=== PATIENT | female | born 1960 | race Two or more races ===

== ENCOUNTER 2019-11-10 19:48 | Emergency (ER) | payer BC ==
[2019-11-10 21:51] LABS: ABS Eosinophils 0.2 10^3/ul (0-0.6); ABS Lymphocytes 1.5 10^3/ul (1.0-4.8); ABS Monocytes 0.4 10^3/ul (0-0.8); ABS Neutrophils 2.2 10^3/ul (1.5-7.7); Eosinophil % 4.4 %; Hematocrit 46 % (35-47); Hemoglobin 15.5 g/dL (12.0-16.0); Lymphocyte % 34.5 %; Mean Corpuscular HGB Conc 34 g/dL (31-36); Mean Corpuscular Hemoglobin 32 pg (27-31); Mean Corpuscular Volume 95 fL (80-97); Mean Platelet Volume 6.7 fL (7.4-10.4); Nucleated Red Blood Cells % 0.1; Platelet Count 259 10^3/uL (150-450); Red Cell Distribution Width 14 % (10-15); White Blood Count 4.3 10^3/uL (3.5-10.8)
[2019-11-10 21:54] LABS: INR 0.96 (0.82-1.09)
[2019-11-10 22:07] LABS: Albumin 4.3 g/dL (3.2-5.2); Albumin/Globulin Ratio 1.5 (1-3); BUN/Creatinine Ratio 5.9 (8-20); Calcium 9.1 mg/dL (8.6-10.3); EGFR African American 149.9 (>60); EGFR Non-African American 123.9 (>60); Globulin 2.8 g/dL (2-4); Potassium 4.4 mmol/L (3.5-5.0); Total Bilirubin 0.3 mg/dL (0.2-1.0); Total Protein 7.1 g/dL (6.4-8.9)
--- NOTE | 2019-11-10 22:23 | ED ---
HPI Chest Pain - HPI Summary HPI Summary: 59 year old F presenting to [facility] with a chief complaint of palpitations. Patient states that last 11/02/2019, she was working an overnight shift at [employer] when she suddenly dropped to her knees and began to experience palpitations for 10-15 minutes. On 11/08/2019, patient experienced the same symptoms again. Yesterday, on 11/09/2019, at 3am patient experienced the same symptoms while driving. Palpitations feel the same and is located in the same location, and lasts for 10-15 minutes during each episode. Patient described her chest discomfort as if her heart was going 100 miles per hour. She denies any sharp pain while experiencing her symptoms and denies syncope. Patient reports feeling lightheaded and states that she had to sit down when experiencing her symptoms. She also notes one episode of a BLACK. Patient currently does not feel her symptoms. She came in today because she could not get into contact with a doctor. Patient did not experience these symptoms prior to one week ago. Patient denies having any PMHx of COPD/ emphysema other than having bronchitis and a sinus infection a couple of weeks ago. SHx includes smoking half a pack a day and occasional drinking. Home Medications Medication Instructions Recorded Confirmed Type NK [No Home Medications Reported] 10/16/12 10/16/12 History - History of Current Complaint Chief Complaint: EDChestWallPain Time Seen by Provider: 11/10/19 21:38 Hx Obtained From: Patient Onset/Duration: Started Days Ago Timing: Intermittent Initial Severity: Mild Current Severity: None Pain Intensity: 2 Pain Scale Used: 0-10 Numeric Character: Fast Associated Signs and Symptoms: Positive: Headaches, Lightheadedness, Palpitations. Negative: Chest Pain, Syncope - Allergy/Home Medications Allergies/Adverse Reactions: Allergies Allergy/AdvReac Type Severity Reaction Status Date / Time No Known Allergies Allergy Verified 10/20/12 11:09 Home Medications: Home Medications NK [No Home Medications Reported] 10/16/12 [History Confirmed 10/16/12] PMH/Surg Hx/FS Hx/Imm Hx Endocrine/Hematology History: Denies: Hx Anticoagulant Therapy, Hx Diabetes, Hx Thyroid Disease Cardiovascular History: Denies: Hx Hypertension, Hx Pacemaker/ICD Respiratory History: Denies: Hx Asthma, Hx Chronic Obstructive Pulmonary Disease (COPD) History: Denies: Hx Renal Disease Neurological History: Denies: Hx Dementia, Hx Seizures Psychiatric History: Reports: Hx Substance Abuse Denies: Hx Eating Disorder, Hx of Violent Episodes Against Others Infectious Disease History: No Infectious Disease History: Denies: Hx Hepatitis, Hx Human Immunodeficiency Virus (HIV), Traveled Outside the [place] in Last 30 Days - Family History Known Family History: Negative: Cardiac Disease, Hypertension, Diabetes - Social History Alcohol Use: Occasionally Substance Use Type: Reports: None Smoking Status (MU): Light Every Day Tobacco Smoker - Half pack a day. Type: Cigarettes Review of Systems Positive: Palpitations. Negative: Chest Pain Neurological/Mental Status: Other - positive - light-headedness Positive: Headache. Negative: Syncope All Other Systems Reviewed And Are Negative: Yes Physical Exam - Summary Physical Exam Summary: Appearance: Well-appearing, Well-nourished, lying in bed comfortably Skin: Warm, dry, no obvious rash Eyes: sclera anicteric, no conjunctival pallor HENT: mucous membranes moist, pharynx appears normal Neck: Supple, nontender Respiratory: Clear to auscultation, no signs of respiratory distress Cardiovascular: Normal S1, S2. No murmurs. Normal distal pulses in tibial and radial bilaterally. Abdomen: Soft, nontender, normal active bowel sounds present Musculoskeletal: Normal, Strength/ROM Intact Neurological: A&Ox3, awake and alert, mentation is normal, speech is fluent and appropriate Psychiatric: affect is normal, does not appear anxious or depressed Triage Information Reviewed: Yes Vital Signs On Initial Exam: Initial Vitals Temp Pulse Resp BP Pulse Ox 99.4 F 101 18 135/89 97 11/10/19 19:57 11/10/19 19:57 11/10/19 19:57 11/10/19 19:57 11/10/19 19:57 Vital Signs Reviewed: Yes Procedures - Sedation Patient Received Moderate/Deep Sedation with Procedure: No Diagnostics - Vital Signs Vital Signs Temp Pulse Resp BP Pulse Ox 11/10/19 19:57 99.4 F 101 18 135/89 97 - Laboratory Lab Results: Lab Results 11/10/19 11/10/19 11/10/19 Range/Units 21:41 21:41 21:41 WBC 4.3 (3.5-10.8) 10^3/uL RBC 4.80 (3.70-4.87) 10^6 /uL Hgb 15.5 (12.0-16.0) g/dL Hct 46 (35-47) % MCV 95 (80-97) fL MCH 32 H (27-31) pg MCHC 34 (31-36) g/dL RDW 14 (10-15) % Plt Count 259 (150-450) 10^3/uL MPV 6.7 L (7.4-10.4) fL Neut % (Auto) 51.4 % Lymph % (Auto) 34.5 % [place] % (Auto) 8.9 % Eos % (Auto) 4.4 % Baso % (Auto) 0.8 % Absolute Neuts (auto) 2.2 (1.5-7.7) 10^3/ul Absolute Lymphs (auto) 1.5 (1.0-4.8) 10^3/ul Absolute Monos (auto) 0.4 (0-0.8) 10^3/ul Absolute Eos (auto) 0.2 (0-0.6) 10^3/ul Absolute Basos (auto) 0.0 (0-0.2) 10^3/ul Absolute Nucleated RBC 0.0 10^3/ul Nucleated RBC % 0.1 INR (Anticoag Therapy) 0.96 (0.82-1.09) Sodium 132 L (135-145) mmol/L Potassium 4.4 (3.5-5.0) mmol/L Chloride 101 (101-111) mmol/L Carbon Dioxide 22 (22-32) mmol/L Anion Gap 9 (2-11) mmol/L BUN 3 L (6-24) mg/dL Creatinine 0.51 (0.51-0.95) mg/dL Est GFR ( Amer) 149.9 (>60) Est GFR (Non-Af Amer) 123.9 (>60) BUN/Creatinine Ratio 5.9 L (8-20) Glucose 79 (70-100) mg/dL Calcium 9.1 (8.6-10.3) mg/dL Total Bilirubin 0.30 (0.2-1.0) mg/dL AST 33 (13-39) U/L ALT 26 (7-52) U/L Alkaline Phosphatase 61 (34-104) U/L Troponin I 0.00 (<0.03) ng/mL Total Protein 7.1 (6.4-8.9) g/dL Albumin 4.3 (3.2-5.2) g/dL Globulin 2.8 (2-4) g/dL Albumin/Globulin Ratio 1.5 (1-3) Result Diagrams: 11/10/19 21:41 11/10/19 21:41 Lab Statement: Any lab studies that have been ordered have been reviewed, and results considered in the medical decision making process. Chest Pain Course/Dx - Course Course Of Treatment: 59 year old F presents to [facility] with a chief complaint of intermittent palpitations since last week. Patient states that her heart suddenly feels as if it is going 100 miles per hour, and her symptoms last 10- 15 min. Palpitations feels the same and is located in the same area every time she experiences her symptoms. Physical Exam was normal. Patients bloodwork showed 32 MCH, 6.7 MPV, 132 sodium, 3 BUN, and 5.9 BUN/Creatinine ratio. Patient was discharged to home with a recommendation to follow up with a icu clerk. - Diagnoses Provider Diagnoses: Heart palpitations - Critical Care Time Critical Care Statement: Critical care time is provided exclusive of any time spent performing procedures. Discharge ED - Sign-Out/Discharge Documenting (check all that apply): Patient Departure - Discharge Plan Condition: Good Disposition: HOME Patient Education Materials: Heart Palpitations (ED) Forms: *Work Release Referrals: Randi Snyder MD [Medical Doctor] - Additional Instructions: I suspect you are having transient bouts of a disturbance in your heart rhythm, but your history does not suggest what we would call a malignant or dangerous arrhythmia. Nonetheless it would be useful to make a more precise diagnosis, which the icu clerk can do with an ambulatory heart rhythm monitoring test. So call the icu clerk office tomorrow and see if you can get in soon. Signs of a more significant rhythm problem would be persistence beyond an hour, or with associated symptoms like chest pain, shortness of breath, or passing out. If those were to happen I would want you back here forthwith. In the meantime I think it is ok for you to go to work as you have not had fever or respiratory symptoms suggestive of COVID. - Billing Disposition and Condition Condition: GOOD Disposition: Home - Attestation Statements Document Initiated by Scribe: Yes Documenting Scribe: Ellie Mar Provider For Whom Scribe is Documenting (Include Credential): Ronald Tidwell MD Scribe Attestation: IEllie, scribed for Ronald Tidwell MD on 11/11/19 at 2057. Scribe Documentation Reviewed: Yes Provider Attestation: The documentation as recorded by the paulyibe, Ellie Mar accurately reflects the service I personally performed and the decisions made by me, Ronald Tidwell MD Status of Scribe Document: Viewed
[2019-11-10 22:43] VITALS: BP 116/80
== END 2019-11-10 22:32 | disposition home or self-care (01) ==
LOC: ED 19:48
DX: R00.2 Palpitations (principal); F17.210 Nicotine dependence, cigarettes, uncomplicated
CPT/HCPCS: 36415; 80053; 84484; 85025; 85610; 99283

== ENCOUNTER 2023-06-08 23:34 | Observation (INO) ==
[2023-06-09 00:11] LABS: ABS Eosinophils 0.2 10^3/uL (0.0-0.5); ABS Lymphocytes 1.5 10^3/uL (1.0-4.8); ABS Monocytes 0.2 10^3/uL (0.0-0.9); ABS Neutrophils 2.1 10^3/uL (1.5-7.6); Hematocrit 46.5 % (35-45); Hemoglobin 16.2 g/dL (11.5-14.3); Lymphocyte % 37.3 %; Mean Corpuscular Hemoglobin 32.9 pg (27-33); Mean Corpuscular Hgb Conc 34.8 g/dL (31-36); Mean Corpuscular Volume 94.4 fL (80-97); Mean Platelet Volume 6.6 fL (7.5-11.2); Nucleated Red Blood Cells % 0.1 %/100WBC (0.0-0.8); Platelet Count 263 10^3/uL (150-450); Red Blood Count 4.92 10^6/uL (3.63-4.92); Red Cell Distribution Width 14.3 % (12-17)
[2023-06-09 00:22] LABS: INR 0.89 (0.83-1.13)
[2023-06-09 00:35] LABS: Albumin 4.5 g/dL (3.2-5.2); Albumin/Globulin Ratio 1.7 (1-3); Creatinine, Serum 0.69 mg/dL (0.51-0.95); Globulin 2.7 g/dL (2-4); Total Bilirubin 0.3 mg/dL (0.2-1.0); Total Protein 7.2 g/dL (6.4-8.9); eGFR CKD-EPI 98.7 (>60)
[2023-06-09 02:06] LABS: High Sensitivity Troponin 1 Hr 6 pg/mL (<15)
[2023-06-09] MEDS ORDERED: Iohexol 350 (CONTRAST) 500 ML MDV IV ONE (02:57)
[2023-06-09] MEDS ORDERED: Nicotine PATCH 21 MG/24 HR PATCH TRANSDERM ONE (03:46)
[2023-06-09] MEDS ORDERED: Nicotine GUM 4MG FRUIT FLAVOR PO PRN (04:34)
[2023-06-09] MEDS ORDERED: Enoxaparin 40 MG/0.4 ML SYR SUBCUT SCH (05:00)
[2023-06-09 05:01] LABS: HDL Cholesterol 79.5 mg/dL
[2023-06-09] MEDS ORDERED: Thiamine 100 MG/ML 2 ml VIAL (200 mg) IM ONE (05:07)
[2023-06-09] MEDS: Aspirin EC 81 mg TAB.EC (enteric coated) PO SCH ×2 (05:25→07:45)
[2023-06-09 06:00] LABS: Folate 13.74 ng/mL (5.90-24.80)
[2023-06-09] MEDS ORDERED: LORazepam 2 mg VIAL 1 ml IV PUSH SCH (06:00)
[2023-06-09] MEDS ORDERED: Multivitamins/Minerals TAB PO SCH (06:00)
[2023-06-09 15:29] VITALS: BP 137/67
[2023-06-11 15:53] LABS: Anaplasma phagocytophilum Negative (Negative); B. miyamotoi PCR, B Negative (Negative); Babesia divergens/MO-1 Negative (Negative); Babesia ducani Negative (Negative); Ehrlichia chaffeensis Negative (Negative); Ehrlichia ewingii/canis Negative (Negative); Ehrlichia muris eauclairensis Negative (Negative)
== END 2023-06-09 15:28 | disposition home or self-care (01) ==
LOC: ED 23:34 → EDHOLD 23:34 → SUATTDRO 06-09 04:14 → EDHOLD 06-09 15:27
PROVIDERS: ADMIT Internal Medicine; ATTEND Hospitalist

== ENCOUNTER 2024-05-03 07:12 | Observation (INO) ==
[2024-05-03 08:12] LABS: ABS Eosinophils 0.4 10^3/uL (0.0-0.5); ABS Lymphocytes 1.7 10^3/uL (1.0-4.8); ABS Monocytes 0.5 10^3/uL (0.0-0.9); ABS Neutrophils 3.8 10^3/uL (1.5-7.6); Eosinophil % 6.1 %; Hematocrit 43.1 % (35-45); Lymphocyte % 26.6 %; Mean Corpuscular Hemoglobin 32.9 pg (27-33); Mean Corpuscular Hgb Conc 34.9 g/dL (31-36); Mean Corpuscular Volume 94.3 fL (80-97); Mean Platelet Volume 6.5 fL (7.5-11.2); Platelet Count 283 10^3/uL (150-450); Red Blood Count 4.57 10^6/uL (3.63-4.92); White Blood Count 6.5 10^3/uL (3.8-11.8)
[2024-05-03 08:30] LABS: Albumin 4.6 g/dL (3.2-5.2); Albumin/Globulin Ratio 1.8 (1-3); Calcium 9.4 mg/dL (8.6-10.3); Creatinine, Serum 0.58 mg/dL (0.51-0.95); Globulin 2.6 g/dL (2-4); Potassium 4.5 mmol/L (3.5-5.0); Total Bilirubin 0.3 mg/dL (0.2-1.0); Total Protein 7.2 g/dL (6.4-8.9); eGFR CKD-EPI 102.3 (>60)
[2024-05-03] MEDS: Iohexol 350 (CONTRAST) 500 ML MDV IV ONE (09:25)
[2024-05-03 10:12] LABS: High Sensitivity Troponin 1 Hr 8 pg/mL (<15)
[2024-05-03] MEDS ORDERED: Sulfur Hexaflouride MICROSPHR 25 MG VIAL IV PRN (11:41)
[2024-05-03 12:15] LABS: HDL Cholesterol 84.3 mg/dL
[2024-05-03] MEDS: Multivitamins/Minerals TAB PO SCH (12:17)
[2024-05-03 12:31] LABS: TSH Ultra Thyroid Stim Horm 2.03 mcIU/mL (0.34-5.60)
[2024-05-03 12:40] LABS: Magnesium 2.2 mg/dL (1.9-2.7)
[2024-05-03 12:42] LABS: Folate 11.77 ng/mL (5.90-24.80)
[2024-05-03 22:38] LABS: Urine Appearance Clear; Urine Bilirubin Negative (Negative); Urine Blood Negative (Negative); Urine Color Light-Yellow; Urine Glucose Negative (Negative); Urine Ketones Negative (Negative); Urine Nitrite Negative (Negative); Urine Protein Negative (Negative); Urine Specific Gravity 1.038 (1.002-1.030); Urine Urobilinogen Negative (Negative)
[2024-05-03 22:49] LABS: Urine Bacteria Absent /HPF (Absent); Urine Red Blood Cell Trace(0-2/hpf) /HPF (0-Trace); Urine Squamous Epithelial Cell Present /HPF (Absent); Urine White Blood Cell 1+(6-10/hpf) /HPF (0-Trace)
[2024-05-04 06:57] LABS: ABS Eosinophils 0.3 10^3/uL (0.0-0.5); ABS Lymphocytes 0.9 10^3/uL (1.0-4.8); ABS Monocytes 0.4 10^3/uL (0.0-0.9); ABS Neutrophils 2.1 10^3/uL (1.5-7.6); Eosinophil % 7.9 %; Hemoglobin 13.7 g/dL (11.5-14.3); Lymphocyte % 24.2 %; Mean Corpuscular Hemoglobin 32.3 pg (27-33); Mean Corpuscular Hgb Conc 34.1 g/dL (31-36); Mean Corpuscular Volume 94.7 fL (80-97); Mean Platelet Volume 6.7 fL (7.5-11.2); Platelet Count 259 10^3/uL (150-450); Red Blood Count 4.23 10^6/uL (3.63-4.92); Red Cell Distribution Width 14.9 % (12-17); White Blood Count 3.8 10^3/uL (3.8-11.8)
[2024-05-04 07:13] LABS: Calcium 9.3 mg/dL (8.6-10.3); Creatinine, Serum 0.77 mg/dL (0.51-0.95); Magnesium 2.2 mg/dL (1.9-2.7); Potassium 4.9 mmol/L (3.5-5.0); eGFR CKD-EPI 87.2 (>60)
[2024-05-04 13:18] VITALS: BP 150/92
[2024-05-04] MEDS: Nicotine PATCH 14 MG/24 HR PATCH TRANSDERM SCH (13:19)
== END 2024-05-04 16:56 | disposition home or self-care (01) ==
LOC: ED 07:12 → EDHOLD 07:12 → SUATTDRO 11:41 → MEDTELE 15:13
PROVIDERS: ADMIT Student in an Organized Health Care Education/Training Program; ATTEND Internal Medicine